=== PATIENT | female | born 1965 | race Caucasian/White ===

== ENCOUNTER 2019-07-11 12:10 | Emergency (ER) | payer BC ==
[2019-07-11 12:27] VITALS: BP 152/95
--- NOTE | 2019-07-11 12:55 | ED Physician Documentation ---
PD HPI FOCAL NEURO - Stated complaint Stated Complaint: LT FACIAL NUMBNESS - Chief complaint Chief Complaint: Neuro - History obtained from History obtained from: Patient - History of Present Illness Timing - onset: Other (53-year-old woman who today developed left facial numbness and weakness. There is no pain. No trouble with eyesight, double vision, other cranial nerves, or weakness, numbness, or tingling in extremities. No headache. No recent tick bites.) Review of Systems Ten Systems: 10 systems reviewed and negative Constitutional: denies: Fever, Chills Nose: denies: Rhinorrhea / runny nose, Congestion Cardiac: denies: Chest pain / pressure, Palpitations Respiratory: denies: Dyspnea PD PAST MEDICAL HISTORY - Present Medications Home Medications: Ambulatory Orders Medication Instructions Recorded Confirmed Valacyclovir HCl [Valacyclovir] 1,000 mg PO TID #30 tablet 07/11/19 predniSONE [Deltasone] 20 mg PO [id number] #21 tab 07/11/19 - Allergies Allergies/Adverse Reactions: Allergies Allergy/AdvReac Type Severity Reaction Status Date / Time doxycycline Allergy Edema Verified 07/11/19 12:27 Penicillins Allergy Unknown Verified 07/11/19 12:27 PD ED PE NORMAL - Vitals Vital signs reviewed: Yes - General General: Alert and oriented X 3, No acute distress - HEENT HEENT: PERRL, EOMI, Other (She has a classic Lund's palsy on the left which does not spare the forehead. There are no other cranial neuropathies noting that I did not check cranial nerve I.) - Neck Neck: Supple, no meningeal sign, No bony TTP - Cardiac Cardiac: RRR, No murmur - Respiratory Respiratory: No respiratory distress, Clear bilaterally - Abdomen Abdomen: Non tender - Neuro Neuro: Alert and oriented X 3, Normal speech Eye Opening: Spontaneous Motor: Obeys Commands Verbal: Oriented GCS Score: 15 NIHSS - Time Time: 12:47 - Level of Consciousness Level of consciousness: (0) Alert, Keenly responsive LOC Questions: (0) Answers both Q's correct LOC Commands: (0) Performs both correctly - Gaze Best Gaze: (0) Normal - Visual Visual: (0) No loss - Facial Palsy Facial Palsy: (2) Partial paralysis (grade IV) - Motor Arms (both separate) Motor Arm (right): (0) No drift Motor Arm (left): (0) No drift - Motor Legs (both separate) Motor Leg (right): (0) No drift Motor Leg (left): (0) No drift - Limb Ataxia Limb Ataxia: (0) Absent - Sensory Sensory: (0) Normal - Best Language Best Language: (0) No aphasia - Dysarthria Dysarthria: (0) Normal - Extinction and Inattention (formally neg Extinction and inattention: (0) No abnormality - Total Score/Results Total Score/Result: 2 Results - Vitals Vitals: Vital Signs - 24 hr 07/11/19 12:24 Temperature 36.9 C Heart Rate 80 Respiratory 17 Rate Blood Pressure 152/95 H O2 Saturation 97 Oxygen O2 Source Room air PD MEDICAL DECISION MAKING - ED course ED course: This is a very pleasant 53-year-old woman who presents with a classic Lund's palsy and no evidence of central neurologic defect. She is started on steroids and valacyclovir. Of note she is visiting from [place], nothing in the history or physical to suggest Lyme as a cause but discussed to follow-up with her doctor on return home for consideration for testing. Departure - Departure Disposition: 01 Home, Self Care Clinical Impression: Lund's palsy Condition: Good Record reviewed to determine appropriate education?: Yes Instructions: ED [place] Palsy Prescriptions: predniSONE [Deltasone] 20 mg PO [id number] #21 tab Valacyclovir HCl [Valacyclovir] 1,000 mg PO TID #30 tablet Comments: Follow-up with your doctor on return home, return for new or worsening symptoms. Your blood pressure was elevated today on check into the emergency department. This does not mean that you have hypertension, it is a common phenomenon to come to the emergency department and have elevated blood pressure. I recommend that you see your primary care physician within the week to have it rechecked when you are feeling better.
== END 2019-07-11 13:00 | disposition home or self-care (01) ==
LOC: ED 12:10
DX: G51.0 Bell's palsy (principal)
CPT/HCPCS: 99283